=== PATIENT | female | born 2000 | race Caucasian/White ===

== ENCOUNTER 2022-11-14 22:40 | Outpatient (CLI) | payer OTHER ==
[~2022-11-14 22:40] MED LIST: NO TOMA MED.; ZANTAC150 M3 PO
[2022-11-14] MEDS ORDERED: PRENATAL 19 TA1 EAC2 PO (23:14)
== END 2022-11-15 16:51 | disposition home or self-care (01) ==
LOC: OBS/DEL 22:40
PROVIDERS: ATTEND Obstetrics & Gynecology
DX: O23.33 Infections of other parts of urinary tract in pregnancy, third trimester (principal); N39.0 Urinary tract infection, site not specified; Z3A.35 35 weeks gestation of pregnancy

== ENCOUNTER 2022-12-06 21:59 | Inpatient (IN) | payer OTHER ==
[~2022-12-06] VITALS: Ht 152.4 cm; Wt 3.2 kg
[~2022-12-06 21:59] MED LIST changes: +PRENATAL 19 TA1 EAC2 PO
== END 2022-12-10 12:31 | disposition home or self-care (01) | DRG 788 ==
LOC: OBS/DEL 21:59 → OB/GYN 12-07 03:16 → LDR 12-07 03:16 → O/R 12-07 13:16 → OB/GYN 12-07 13:37
PROVIDERS: ADMIT Obstetrics & Gynecology; ATTEND Obstetrics & Gynecology
PROC: 4A1HXCZ Monitoring of Products of Conception, Cardiac Rate, External Approach (ICD-10-PCS; 2022-12-07)
PROC: 10D00Z1 Extraction of Products of Conception, Low, Open Approach (ICD-10-PCS; principal; 2022-12-07 10:30)
DX: O33.8 Maternal care for disproportion of other origin (principal); Z3A.38 38 weeks gestation of pregnancy; Z37.0 Single live birth; Z20.822 Contact with and (suspected) exposure to COVID-19